=== PATIENT | female | born 1990 | race Two or more races ===

== ENCOUNTER 2024-09-06 17:20 | Emergency (ER) | payer MEDICAID, SELFPAY ==
[2024-09-06 17:21] VITALS: BMI 31.8
[2024-09-06 17:32] VITALS: BP 119/67; PULSE 66; RESP 16; TEMP 37.4; O2SAT 99
--- NOTE | 2024-09-06 18:00 | XR_ITS ---
Examination: Abdomen sonogram, Limited Date and time of exam: September 06, 2024 1835 hours INDICATIONS: Right upper abdominal pain and vomiting today, history gallstones Technique: Real-time arreguin scale transabdominal sonographic images of the upper abdomen obtained. Findings: Multiple gallstones Gallbladder wall 0.37 cm no edema Common bile duct 0.6 cm no definite stones Pancreatic head 2.2 cm Liver 12.5 cm no focal liver lesions Normal hepatopedal portal venous flow Patent IVC IMPRESSION: Cholelithiasis Borderline thickening gallbladder wall Mildly enlarged common bile duct, consider MRCP follow-up to exclude common bile duct stones and to exclude cholecystitis
--- NOTE | 2024-09-06 18:01 | PD.EDRME ---
Rapid Medical Screening Exam RME Arrival date/time: 09/06/24 17:20 34-year-old female presents the emergency department for complaint of upper right abdominal pain reports history of cholelithiasis Chief Complaint: Abdominal Pain Vital signs: Vital Signs Temperature 99.4 F 09/06/24 17:32 Pulse Rate 66 09/06/24 17:32 Respiratory Rate 16 09/06/24 17:32 Blood Pressure 119/67 09/06/24 17:32 Pulse Oximetry (%) 99 09/06/24 17:32 Oxygen Delivery Method Room Air 09/06/24 17:32
[2024-09-06] MEDS: ACETAMINOPHEN 500 MG TABLET 1000 MG PO (18:05)
[2024-09-06] MEDS: ONDANSETRON ODT 4 MG TABRAP PO (18:06)
[2024-09-06 18:38] LABS: Basophils % (Auto) 0 % (0-2.5); Eosinophils # (Auto) 0.1 Thou/mm3 (0.0-0.5); Eosinophils % (Auto) 1 % (0-10); Hematocrit 38.2 % (36.0-46.0); Immature Granulocytes % (Auto) 0 % (0-0); Immature Granulocytes Auto 0.01 Thou/mm3 (0.00-0.00); Lymphocytes # (Auto) 1.9 Thou/mm3 (1.0-4.8); Lymphocytes % (Auto) 30 % (10-50); Mean Corpuscular Hemoglobin 29.2 pg (25.0-35.0); Mean Corpuscular Volume 86 fL (80-100); Monocytes # (Auto) 0.4 Thou/mm3 (0.0-0.8); Monocytes % (Auto) 6 % (0-12); Neutrophils % (Auto) 62 % (37-80); Nucleated Red Blood Cell % 0 /100 WBC (0); Platelet Count 206 Thou/mm3 (140-440); RDW Standard Deviation 39.6 fL (36.4-46.3); Red Blood Count 4.45 Miln/mm3 (4.00-5.20); White Blood Count 6.4 Thou/mm3 (3.6-11.0)
[2024-09-06 18:40] LABS: Collection Type, Urine Clean Catch
[2024-09-06 18:50] LABS: Alanine Aminotransferase 15 U/L (10-49); Albumin, Serum 4.7 gm/dL (3.5-5.0); Albumin/Globulin Ratio 1.6 (1.2-2.2); Alkaline Phosphatase 41 U/L (46-116); Anion Gap 9 (7-16); Aspartate Amino Transferase 20 U/L (0-34); BUN/Creatinine Ratio 21 Ratio (12-20); Bilirubin,Total 0.4 mg/dL (0.3-1.2); Blood Urea Nitrogen 19 mg/dL (9-23); Calcium 9.6 mg/dL (8.3-10.6); Calcium (Corrected) 9.6 mg/dL (8.5-10.1); Carbon Dioxide 25.9 mMol/L (20.0-31.0); Chloride 103 mMol/L (98-107); Creatinine (Component) 0.9 mg/dL (0.6-1.3); Estimated Creatinine Clearance 87.4 mL/min (>60); Globulin 2.9 gm/dL (2.3-3.5); Glucose 90 mg/dL (74-106); Lipase 30 U/L (12-53); Osmolality,Calculated 277 (275-295); Potassium 4.2 mMol/L (3.4-5.1); Sodium 138 mMol/L (136-145); Total Protein 7.6 gm/dL (5.7-8.2); eGFR > 60 See Note
[2024-09-06 18:57] LABS: HCG Qualitative,Urine Negative
[2024-09-06 18:58] LABS: Bacteria,Urine Rare; Bilirubin,Urine Negative (Negative); Blood,Urine Trace (Negative); Clarity,Urine Clear (Clear/Hazy); Color,Urine Colorless (Lt Yel-Yel); Culture Indicated,Urine Not Indicated; Glucose, Urine Negative (Negative); Ketones,Urine Negative (Negative); Leukocyte Esterase,Urine Negative (Negative); Nitrite,Urine Negative (Negative); Protein,Urine Negative (Neg - Trace); RBC,Urine 1 /hpf (0-3); Specific Gravity,Urine 1.015 (1.001-1.035); Squamous Epithelial Cell,Urine 2 /hpf (0-5); Urobilinogen,Urine Negative mg/dL (0.0-1.0); WBC,Urine 2 /hpf (0-5)
--- NOTE | 2024-09-06 22:36 | PD.EDABDPN ---
ED Abdominal Pain RME/HPI General Chief Complaint: Abdominal Pain Stated complaint: STABBING PAIN IN GALLBLADDER W/ NAUSEA X 5 HRS Time seen by provider: 09/06/24 22:32 Arrival date/time: 09/06/24 17:20 Source: patient Limitations: no limitations RME / HPI RME / HPI narrative: 34-year-old female with no chronic medical history other than biliary colic. She states she has had a gallbladder problems for 10 years now. She will get pain with this at times. She states she was seen by general surgery for this approximate 5 to 6 years ago, surgery was being considered, but was canceled during the pandemic. She has not followed up with her general surgeon since. She states she developed worsening pain today at noon today and that has since improved. She has no diarrhea or diarrhea. No urinary changes. Related Data Home Medications ?Medication ?Instructions ?Recorded ?Confirmed Vitamin * 1 tab PO QDAY #0 tabs 09/12/13 ferrous sulfate 325 mg (65 mg 325 mg .Route QDAY #0 tabs 09/12/13 iron) tablet (Feosol) ferrous sulfate 324 mg (65 mg 325 mg PO BID 06/07/18 10/05/18 iron) tablet,delayed release vit no.95-ferrous 1 tab PO QDAY 06/07/18 10/05/18 fumarate 28 mg-folic acid 800 mcg tablet ( Multivitamins) Previous Rx's ?Medication ?Instructions ?Recorded hydrocodone 5 mg-acetaminophen 325 1 tab PO Q6H PRN pain #10 tabs 09/06/24 mg tablet ondansetron HCl 4 mg tablet 4 mg PO QDAY 3 days #3 tabs 09/06/24 Allergies Allergy/AdvReac Type Severity Reaction Status Date / Time No Known Allergies Allergy Verified 09/06/24 17:22 Review of Systems Review of Systems Systems Reviewed: All systems reviewed, normal except as documented ED Exam General Limitations: Present no limitations General appearance: Present alert and in no apparent distress Head Head exam: Present atraumatic Eye Eye exam: Present normal appearance, PERRL and EOMI ENT ENT exam: Present normal exam, normal oropharynx and mucous membranes moist Neck Neck exam: Present normal inspection, full ROM and trachea midline Chest Chest inspection: Present normal inspection and symmetric chest wall rise Respiratory Respiratory exam: Present normal lung sounds bilaterally Cardiovascular Cardiovascular exam: Present regular rate, normal rhythm and normal heart sounds Abdominal Exam Abdominal exam: Present soft and normal bowel sounds Extremities Exam Extremities exam: Present normal inspection and full ROM Back Exam Back exam: Present normal inspection and full ROM Neurological Exam Neurological exam: Present alert, oriented X3 and CN II-XII intact Psychiatric Psychiatric exam: Present normal affect and normal mood Skin Skin exam: Present warm, dry, intact and normal color Course Quality Measures none Orders Category Date Time Status US gall bladder Stat Exams 09/06/24 18:00 Completed CBC Stat Lab 09/06/24 18:12 Completed Comprehensive Metabolic Panel Stat Lab 09/06/24 18:12 Completed HCG Qualitative,Urine Stat Lab 09/06/24 18:15 Completed Lipase Stat Lab 09/06/24 18:12 Completed UA, C/S IF [Urinalysis, C/S if Indicated] Stat Lab 09/06/24 18:15 Completed Acetaminophen Tab [Tylenol ES Tab] Med 09/06/24 18:00 Discontinued 1,000 mg PO X1 ONE Ondansetron Odt [Zofran Odt] Med 09/06/24 18:00 Discontinued 4 mg PO X1 ONE Vital Signs Vital signs: Vital Signs Temperature 99.4 F 09/06/24 17:32 Pulse Rate 66 09/06/24 17:32 Respiratory Rate 16 09/06/24 17:32 Blood Pressure 119/67 09/06/24 17:32 Pulse Oximetry (%) 99 09/06/24 17:32 Oxygen Delivery Method Room Air 09/06/24 17:32 Abdominal Pain MDM MDM Narrative MDM Narrative:: On exam, patient is nontoxic-appearing and in no visible signs distress. She has no peritoneal signs. She is not point tender at her right upper quadrant. Her AST, ALT, alk phos, and bilirubin are all unremarkable. Lipase is unremarkable. Ultrasound confirms cholelithiasis. Do not believe she has acute cholecystitis or a stone in the common bile duct based on her laboratory results. Patient would benefit from outpatient surgical consultation and interventions. Will refer to surgery. We discussed return precautions. She is return as needed for any worsening or emergent changes such as increased pain, vomiting, or fevers. Patient data External records reviewed:: None Clinical information provided by:: patient Social determinants that could affect healthcare access:: none Patient has the following chronic illnesses:: Biliary colic How is presenting disease/condition affected by chronic disease/condition?: exacerbated by Evaluation data The following diagnostics were reviewed and interpreted by me:: lab results (No leukocytosis, liver function test are within normal limits. Lipase is unremarkable.) and radiology exam(s) (Gallbladder ultrasound confirms cholelithiasis) Lab and/or radiology exams considered but not ordered:: n/a Interpretation Summary: No elevated LFTs, radiology confirms cholelithiasis. There is mention of possible gallbladder wall thickening. Patient has improved pain and is not tender on exam. Discussed with attending ER physician. Will discharge for outpatient follow-up. Return as needed for worsening emergent changes Medications / Prescriptions Medications or Prescriptions considered but not ordered:: n/a Medication administrations:: Medication Administration History Discontinued Medications Acetaminophen (Acetaminophen 500 Mg Tablet) 1,000 mg PO X1 ONE Stop: 09/06/24 18:01 Last Admin: 09/06/24 18:05 Dose: 1,000 mg Documented By: MIKHAIL Ondansetron HCl (Ondansetron Odt 4 Mg Tabrap) 4 mg PO X1 ONE; Protocol Stop: 09/06/24 18:01 Last Admin: 09/06/24 18:06 Dose: 4 mg Documented By: MIKHAIL See above Consultations Consultation(s) initiated? (list below): No Diagnosis Differential diagnosis abdominal pain: abdominal pain, gastroenteritis and pancreatitis Most likely diagnosis given after review of the tests above:: Biliary colic Admission Indicated Admission indicated?: not indicated Admission Request Was there a request for admission?: No Disposition Plan Disposition Plan: Discharge Discharge Attestation Discharge Attestation: The patient and all family members were given an opportunity to ask questions and understood the discharge instructions. Discharge instructions specifically effects, indications for sooner follow up or return to the emergency department, and the expected course of current diagnosis. Patient condition: Stable Discharge Plan Plan Patient Disposition: HOME (Self Care) Patient condition on transfer: Stable Prescriptions/Referrals Prescriptions/Med Rec: New hydrocodone-acetaminophen 5-325 mg tablet 1 tab PO Q6H MDD 4 PRN (Reason: pain) Qty: 10 0RF ondansetron HCl 4 mg tablet 4 mg PO QDAY 3 Days Qty: 3 0RF No Action ferrous sulfate [Feosol] 1 TAB tablet 325 mg .Route QDAY Qty: 0 Vitamin * 1 EACH tablet 1 tab PO QDAY Qty: 0 PNV cmb#95-ferrous fumarate-FA [ Multivitamins] 28 mg iron- 800 mcg Tablet 1 tab PO QDAY ferrous sulfate 324 mg (65 mg iron) Tablet,Delayed Release (Dr/Ec) 325 mg PO BID Referrals: John Mccloud MD [Physician] - In 1 week No Primary/Family,Physician [Primary Care Provider] - In 1 week Problem List Clinical Impression: Biliary colic Patient/Caregiver Discharge Instructions Education Materials: ED Gallstones with Biliary Colic Additional Instructions: - Avoid fatty and greasy foods. - Use of provided medications as needed for symptomatic relief. - Contact general surgery to schedule close follow-up appointment. - Return to the ER anytime for any worsening emergent changes. Print Language: Turkmen Stand Alone Forms: Olivia Award Info., Patient Portal Info Letter
== END 2024-09-06 22:54 | disposition home or self-care (01) ==
PROVIDERS: Nurse Practitioner Primary Care; Emergency Provider Emergency Medicine
DX: K80.70 Calculus of gallbladder and bile duct without cholecystitis without obstruction (principal)
CPT/HCPCS: 36415; 76705; 80053; 81001; 81025; 83690; 85025; 99284; Q0162; A9270

== ENCOUNTER 2024-11-06 01:13 | Emergency (ER) | payer MEDICAID, SELFPAY ==
[2024-11-06 01:14] VITALS: BMI 30.9
[2024-11-06 01:38] VITALS: BP 114/75; PULSE 75; RESP 18; TEMP 36.7; O2SAT 98
--- NOTE | 2024-11-06 01:48 | EKG_ITS ---
[facility] Test Date: 2024-11-06 Pat Name: MARY CARRILLO Department: Room: - Gender: Female Roving Weight Gauger: : 1990 Requested By: Lalo Purvis Order Number: [id number] Reading MD: Lalo Purvis Measurements Intervals [place] Rate: 63 P: 37 DC: 157 QRS: 56 QRSD: 90 T: 42 QT: 414 QTc: 425 Interpretive Statements SINUS RHYTHM No previous ECG available for comparison /store/S0/[id number]/ecg/[id number].pdf
--- NOTE | 2024-11-06 01:48 | XR_ITS ---
Examination: CT brain head without contrast. 2-D sagittal coronal reconstructions Date and time of exam:November 06, 2024, 0159 hours INDICATIONS: Headache dizziness shaking shortness of breath beginning today. CTDI: vol (mGy):46.60. DLP: (mGycm):897 Technique: Multiple CT axial sections of the brain have been obtained, 5 mm slice thickness. Contrast has not been administered. 2-D sagittal, coronal reconstructions have been obtained Low dose protocols were performed. One or more of the following dose reduction techniques were used; automated exposure control, adjustment of the mA and/or KV according to patient size, use of iterative reconstruction technique. Findings: No significant ventricular enlargement. Intra-axial or extra-axial hemorrhage density is not seen. No mass effect or midline shift Basal cisterns are not remarkable. Fourth ventricle is midline. Cranial vault intact. Impression: Negative for acute hemorrhage, mass effect or midline shift Advise clinical correlation and follow up accordingly.
--- NOTE | 2024-11-06 01:48 | PD.EDRME ---
Rapid Medical Screening Exam RME Arrival date/time: 11/06/24 01:13 This is a case of 34-year-old female with no medical history came in in the emergency room due to dizziness headache and shakiness for 2 days worsening of symptoms thus patient decided to sought consult in the emergency room Chief Complaint: Dizziness Time Seen by Provider: 11/06/24 01:48 Vital signs: Vital Signs Temperature 98.0 F 11/06/24 01:38 Pulse Rate 75 11/06/24 01:38 Respiratory Rate 18 11/06/24 01:38 Blood Pressure 114/75 11/06/24 01:38 Pulse Oximetry (%) 98 11/06/24 01:38 Oxygen Delivery Method Room Air 11/06/24 01:38
[2024-11-06 02:23] LABS: Basophils # (Auto) 0.0 Thou/mm3 (0.0-0.2); Basophils % (Auto) 1 % (0-2.5); Eosinophils # (Auto) 0.1 Thou/mm3 (0.0-0.5); Eosinophils % (Auto) 1 % (0-10); Hematocrit 36.3 % (36.0-46.0); Hemoglobin 12.3 g/dL (12.0-16.0); Immature Granulocytes Auto 0.01 Thou/mm3 (0.00-0.00); Lymphocytes # (Auto) 2.3 Thou/mm3 (1.0-4.8); Lymphocytes % (Auto) 30 % (10-50); Mean Corpuscular HGB Conc 33.9 g/dl (31.0-37.0); Mean Corpuscular Hemoglobin 28.8 pg (25.0-35.0); Mean Corpuscular Volume 85 fL (80-100); Monocytes # (Auto) 0.7 Thou/mm3 (0.0-0.8); Monocytes % (Auto) 9 % (0-12); Neutrophils # (Auto) 4.6 Thou/mm3 (1.8-7.7); Neutrophils % (Auto) 60 % (37-80); Nucleated Red Blood Cell # 0.00 Thou/mm3 (0.00-0.00); Nucleated Red Blood Cell % 0 /100 WBC (0); Platelet Count 254 Thou/mm3 (140-440); RDW Standard Deviation 38.5 fL (36.4-46.3); Red Blood Count 4.27 Miln/mm3 (4.00-5.20); White Blood Count 7.8 Thou/mm3 (3.6-11.0)
--- NOTE | 2024-11-06 02:39 | PRELIM_ITS ---
CT scan of the head without intravenous contrast (axial sections with sagittal and coronal reformats). November 06, 2024 0159 hours Clinical History: headache Findings: No evidence of intracranial hemorrhage, mass effect or midline shift. The ventricles and CSF spaces are unremarkable. The calvarium is unremarkable. The mastoid air cells and the visualized paranasal sinuses are clear. Impression: 1. No evidence of intracranial hemorrhage, mass effect or midline shift. 2. Other findings as described above. Suggest clinical correlation and follow up accordingly. Report Electronically Signed By: Rj Gavin 11/06/2024 2:38:41 AM [EST]
[2024-11-06 02:41] VITALS: BP 111/66; PULSE 56; RESP 15; O2SAT 97
[2024-11-06 02:46] LABS: Alanine Aminotransferase 15 U/L (10-49); Albumin, Serum 4.4 gm/dL (3.5-5.0); Albumin/Globulin Ratio 1.6 (1.2-2.2); Alkaline Phosphatase 46 U/L (46-116); Anion Gap 9 (7-16); Aspartate Amino Transferase 14 U/L (0-34); BUN/Creatinine Ratio 18 Ratio (12-20); Bilirubin,Total 0.4 mg/dL (0.3-1.2); Blood Urea Nitrogen 16 mg/dL (9-23); Calcium 9.8 mg/dL (8.3-10.6); Calcium (Corrected) 9.8 mg/dL (8.5-10.1); Carbon Dioxide 26.1 mMol/L (20.0-31.0); Chloride 104 mMol/L (98-107); Creatinine (Component) 0.9 mg/dL (0.6-1.3); Estimated Creatinine Clearance 89.3 mL/min (>60); Globulin 2.7 gm/dL (2.3-3.5); Glucose 101 mg/dL (74-106); Osmolality,Calculated 278 (275-295); Potassium 3.9 mMol/L (3.4-5.1); Sodium 139 mMol/L (136-145); Total Protein 7.1 gm/dL (5.7-8.2); eGFR > 60 See Note
[2024-11-06 03:02] LABS: Collection Type, Urine Clean Catch
--- NOTE | 2024-11-06 03:03 | PD.EDDIZZY ---
ED Dizzyness RME/HPI General Chief Complaint: Dizziness Stated Complaint: DIZZY, SHAKING, AND CAN'T GET ENOUGH OXYGEN Time Seen by Provider: 11/06/24 01:48 Arrival date/time: 11/06/24 01:13 RME / HPI RME / HPI Narrative: 11/06/24 01:13 This is a case of 34-year-old female with no medical history came in in the emergency room due to dizziness headache and shakiness for 2 days worsening of symptoms thus patient decided to sought consult in the emergency room DR. CURRAN MAIN ED EVALUATION: 34 y/o female with Hx of Cholecystitis and Anemia presents to ED c/o dizziness and shakiness x 24 hours. Dizziness is exacerbated with movement, but is able to ambulate. No other concerns or complaints expressed at this time. Related Data Home Medications ?Medication ?Instructions ?Recorded ?Confirmed Vitamin * 1 tab PO QDAY #0 tabs 09/12/13 ferrous sulfate 325 mg (65 mg 325 mg .Route QDAY #0 tabs 09/12/13 iron) tablet (Feosol) ferrous sulfate 324 mg (65 mg 325 mg PO BID 06/07/18 10/05/18 iron) tablet,delayed release vit no.95-ferrous 1 tab PO QDAY 06/07/18 10/05/18 fumarate 28 mg-folic acid 800 mcg tablet ( Multivitamins) Previous Rx's ?Medication ?Instructions ?Recorded hydrocodone 5 mg-acetaminophen 325 1 tab PO Q6H PRN pain #10 tabs 09/06/24 mg tablet meclizine 25 mg tablet 25 mg PO QID PRN dizziness #20 tabs 11/06/24 Allergies Allergy/AdvReac Type Severity Reaction Status Date / Time No Known Allergies Allergy Verified 11/06/24 01:14 Review of Systems Review of Systems Systems Reviewed: All systems reviewed, normal except as documented Past Medical History Past Medical History GASTROINTESTINAL: Positive Gastrointestinal Disorders and Gall Bladder Disease (GALLSTONES) REPRODUCTIVE: Positive Previous Pregnancies HEMATOLOGIC: Positive Blood Disorders and Anemia Family History FAMILY HISTORY: Positive Family Cardiac Disorders (FATHER (HEART ATTACK)) and Family Cancer (THYROID CANCER, PROSTATE CANCER) ED Exam Narrative Physical exam: Generally patient is alert no obvious distress, eyes show no vertical nystagmus, heart regular rate and rhythm, lungs clear to auscultation equal bilaterally, abdomen soft bowel sounds present nondistended nontender, neurologic exam no focal motor or sensory deficits current nerves II through XII grossly intact Course Quality Measures none Orders Category Date Time Status EKG (ED ONLY) *Do not use* NOW Care 11/06/24 01:48 Completed EKG (ED ONLY) *Do not use* NOW Care 11/06/24 02:[address] head/brain wo con Stat Exams 11/06/24 01:48 Taken EKG (ED Only) Stat Exams 11/06/24 01:48 Draft EKG (ED Only) Stat Exams 11/06/24 02:58 Stop Req CBC Stat Lab 11/06/24 02:10 Completed Comprehensive Metabolic Panel Stat Lab 11/06/24 02:10 Completed Drug Screen,Urine Stat Lab 11/06/24 02:56 Ordered HCG Qualitative,Urine Stat Lab 11/06/24 02:38 Completed Urinalysis Stat Lab 11/06/24 02:38 Completed Meclizine HCl [Antivert] Med 11/06/24 03:05 Discontinued 25 mg PO X1 ONE Vital Signs Vital signs: Vital Signs Temperature 98.0 F 11/06/24 01:38 Pulse Rate 75 11/06/24 01:38 Respiratory Rate 18 11/06/24 01:38 Blood Pressure 114/75 11/06/24 01:38 Pulse Oximetry (%) 98 11/06/24 01:38 Oxygen Delivery Method Room Air 11/06/24 01:38 Dizziness MDM Narrative MDM Narrative:: Scribe Attestation: ISowmya am scribing for and in the presence of Dr. Curran. Provider Notation: Although this document has been carefully reviewed, there may still be some phonetic and other typographical errors. These errors are purely grammatical due to imperfections in the software program and should not be construed in any way to? compromise the substance of the patient's medical care during this visit. The patient's workup was protocoled. Head CT was negative. I interpreted all lab work and there is no acute abnormality. Patient states that the dizziness is made worse with head movement. Patient received meclizine 25 mg p.o. here in the emergency room with partial benefit. She will be given a prescription for meclizine to be taken as prescribed. Follow-up with her doctor. Return to ER as needed or if condition worsens. There was no sign of electrolyte abnormality, anemia or . Patient data External records reviewed:: [facility] previous records (Reviewed prior ED records from 09/06/24. Patient was seen for Biliary colic.) Clinical information provided by:: patient Social determinants that could affect healthcare access:: none Patient has the following chronic illnesses:: Anemia How is presenting disease/condition affected by chronic disease/condition?: exacerbated by Evaluation data The following diagnostics were reviewed and interpreted by me:: lab results, radiology exam(s) and EKG tracing(s) Lab and/or radiology exams considered but not ordered:: None Interpretation Summary: RADIOLOGY Head/Brain CT: Findings: No evidence of intracranial hemorrhage, mass effect or midline shift. The ventricles and CSF spaces are unremarkable. The calvarium is unremarkable. The mastoid air cells and the visualized paranasal sinuses are clear. Impression: No evidence of intracranial hemorrhage, mass effect or midline shift. Other findings as described above. Suggest clinical correlation and follow up accordingly. Medications / Prescriptions Medications or Prescriptions considered but not ordered:: None Medication administrations:: Medication Administration History Discontinued Medications Meclizine HCl (Meclizine Hcl 25 Mg Tablet) 25 mg PO X1 ONE Stop: 11/06/24 03:06 Last Admin: 11/06/24 03:25 Dose: 25 mg Documented By: See above if any Consultations Consultation(s) initiated? (list below): No Diagnosis Dizziness Differential Diagnosis: adverse reaction to drug, benign paroxysmal positional vertigo, orthostatic hypotension, vertebral basilar insufficiency and acute vestibular neuronitis Most likely diagnosis given after review of the tests above:: none Admission Indicated Admission indicated?: not indicated Explain why admission is indicated or not indicated:: Patient does not meet admission criteria Admission Request Was there a request for admission?: No Disposition Plan Disposition Plan: Discharge Discharge Attestation Discharge Attestation: The patient and all family members were given an opportunity to ask questions and understood the discharge instructions. Discharge instructions specifically effects, indications for sooner follow up or return to the emergency department, and the expected course of current diagnosis. Patient condition: Stable Discharge Plan Plan Patient Disposition: HOME (Self Care) Prescriptions/Referrals Prescriptions/Med Rec: New meclizine 25 mg tablet 25 mg PO QID PRN (Reason: dizziness) Qty: 20 0RF No Action ferrous sulfate [Feosol] 1 TAB tablet 325 mg .Route QDAY Qty: 0 Vitamin * 1 EACH tablet 1 tab PO QDAY Qty: 0 PNV no.95-ferrous fumarate-FA [ Multivitamins] 28 mg iron- 800 mcg Tablet 1 tab PO QDAY ferrous sulfate 324 mg (65 mg iron) Tablet,Delayed Release (Dr/Ec) 325 mg PO BID hydrocodone-acetaminophen 5-325 mg tablet 1 tab PO Q6H MDD 4 PRN (Reason: pain) Qty: 10 0RF Referrals: Taurus Rome MD [Primary Care Provider] - In 1 week Problem List Clinical Impression: Vertigo Patient/Caregiver Discharge Instructions Additional Instructions: Take the meclizine as prescribed. Follow-up with your doctor. Return to ER as needed or if condition worsens. Print Language: Urdu Stand Alone Forms: Olivia Award Info., Patient Portal Info Letter
[2024-11-06 03:08] LABS: HCG Qualitative,Urine Negative
[2024-11-06 03:09] LABS: Bilirubin,Urine Negative (Negative); Blood,Urine Negative (Negative); Clarity,Urine Clear (Clear/Hazy); Color,Urine Lt-Yellow (Lt Yel-Yel); Glucose, Urine Negative (Negative); Ketones,Urine Negative (Negative); Leukocyte Esterase,Urine Positive (Negative); Nitrite,Urine Negative (Negative); PH,Urine 6.0 (5.0-7.0); Protein,Urine Negative (Neg - Trace); RBC,Urine 1 /hpf (0-3); Specific Gravity,Urine 1.012 (1.001-1.035); Squamous Epithelial Cell,Urine 1 /hpf (0-5); Urobilinogen,Urine Negative mg/dL (0.0-1.0); WBC,Urine 1 /hpf (0-5)
[2024-11-06] MEDS: MECLIZINE HCL 25 MG TABLET PO (03:25)
[2024-11-06 03:46] VITALS: BP 104/68; PULSE 56; RESP 13; TEMP 36.6; O2SAT 94
[2024-11-06 04:08] VITALS: BP 112/86; PULSE 71; RESP 18
== END 2024-11-06 04:09 | disposition home or self-care (01) ==
PROVIDERS: Nurse Practitioner Family; Emergency Provider Emergency Medicine; PCP Family Medicine
DX: R42 Dizziness and giddiness (principal)
CPT/HCPCS: 36415; 70450; 80053; 80307; 81001; 81025; 85025; 93005; 99283; A9270

== ENCOUNTER 2025-03-02 05:50 | Day surgery (SDC) | payer MEDICAID, SELFPAY ==
[2025-03-01 11:07] VITALS: BMI 33.3
[2025-03-01 12:33] LABS: Basophils # (Auto) 0.0 Thou/mm3 (0.0-0.2); Basophils % (Auto) 1 % (0-2.5); Eosinophils # (Auto) 0.1 Thou/mm3 (0.0-0.5); Eosinophils % (Auto) 1 % (0-10); Hematocrit 36.0 % (36.0-46.0); Hemoglobin 12.1 g/dL (12.0-16.0); Immature Granulocytes Auto 0.01 Thou/mm3 (0.00-0.00); Lymphocytes # (Auto) 1.1 Thou/mm3 (1.0-4.8); Lymphocytes % (Auto) 25 % (10-50); Mean Corpuscular HGB Conc 33.6 g/dl (31.0-37.0); Mean Corpuscular Hemoglobin 29.2 pg (25.0-35.0); Mean Corpuscular Volume 87 fL (80-100); Monocytes # (Auto) 0.5 Thou/mm3 (0.0-0.8); Monocytes % (Auto) 12 % (0-12); Neutrophils # (Auto) 2.6 Thou/mm3 (1.8-7.7); Neutrophils % (Auto) 61 % (37-80); Nucleated Red Blood Cell # 0.00 Thou/mm3 (0.00-0.00); Nucleated Red Blood Cell % 0 /100 WBC (0); Platelet Count 195 Thou/mm3 (140-440); RDW Standard Deviation 39.8 fL (36.4-46.3); Red Blood Count 4.14 Miln/mm3 (4.00-5.20); White Blood Count 4.3 Thou/mm3 (3.6-11.0)
[2025-03-01 12:38] LABS: HCG,Qualitative Serum Negative
[2025-03-01 12:47] LABS: Alanine Aminotransferase 31 U/L (10-49); Albumin, Serum 4.6 gm/dL (3.5-5.0); Albumin/Globulin Ratio 1.6 (1.2-2.2); Alkaline Phosphatase 51 U/L (46-116); Anion Gap 10 (7-16); Aspartate Amino Transferase 25 U/L (0-34); BUN/Creatinine Ratio 15 Ratio (12-20); Bilirubin,Total 0.5 mg/dL (0.3-1.2); Blood Urea Nitrogen 12 mg/dL (9-23); Calcium 9.4 mg/dL (8.3-10.6); Calcium (Corrected) 9.4 mg/dL (8.5-10.1); Carbon Dioxide 27.7 mMol/L (20.0-31.0); Chloride 105 mMol/L (98-107); Creatinine (Component) 0.8 mg/dL (0.6-1.3); Estimated Creatinine Clearance 99.6 mL/min (>60); Globulin 2.9 gm/dL (2.3-3.5); Glucose 100 mg/dL (74-106); Osmolality,Calculated 284 (275-295); Potassium 4.0 mMol/L (3.4-5.1); Sodium 143 mMol/L (136-145); Total Protein 7.5 gm/dL (5.7-8.2); eGFR > 60 See Note
[2025-03-02] VITALS (12 sets, daily range): BP systolic 95–104; BP diastolic 53–74; PULSE 51–69; RESP 13–21; TEMP 36.3–36.6; O2SAT 97–100; BMI 33.1
[2025-03-02] MEDS: RINGERS LACTATED 1000 ML 1,000 ML 20 ML IV (07:21)
--- NOTE | 2025-03-02 08:43 | SUR.PHASEI ---
Addendum entered by Antonina Lewis RN 03/02/25 15:43: Change MERNA Loyd to MERNA Gonzalez Original Note: 0843: pt received from OR via [facility]. received report from MERNA Loyd and DIONI Welch. pt sleepy with oral airway in place. no s/s of resp. distress or discomfort. no s/s of pain or discomfort. dermabond x4 to abdomen clean, dry and intact. no bleeding or swelling around the surgical site.
--- NOTE | 2025-03-02 08:47 | ESOP_ITS ---
Date of Procedure 03/02/25 Pre Op Diagnosis Symptomatic cholelithiasis Post Op Diagnosis Cholelithiasis with cholecystitis Procedure Laparoscopic cholecystectomy Findings Moderately distended gallbladder filled with varying sizes of gallstones and chronic cholecystitis Procedure Description Patient was brought into the operating room in supine position. After administration of general endotracheal anesthesia abdomen was prepped and draped in standard surgical manner. A Veress needle was inserted through the umbilicus and pneumoperitoneum was obtained up to 15 mmHg. The Veress needle was then removed, a 5 mm infraumbilical incision was made and the 5mm trocar was inserted. Laparoscopic camera was placed. Under direct visualization a laparoscopic camera a 10 mm trocar was placed in subxiphoid and two 5 mm trocars placed in right upper quadrant. The gallbladder was identified and was noted to be moderately distended filled with gallstones and chronic cholecystitis. It was retracted cephalad and laterally. Dissection started near the infundibulum of gallbladder where cystic duct and gallbladder junction clearly identified. The cystic duct was circumferentially dissected off the peritoneum and surrounding inflammatory tissue. The critical view of safety was clearly demonstrated. Cystic duct was then divided between 2 endoclips proximally and one distally. The cystic artery was similarly dissected and divided, patient was noted to have anterior and posterior branches of cystic artery that were individually dissected and divided. The gallbladder was then from the liver bed using electrocautery. The gallbladder was then placed inside an Endo Catch and removed from the abdomen utilizing subxiphoid trocar site. The area was copiously and thoroughly washed and irrigated, all the fluid was suctioned and the suction fluid returned clear. Hemostasis achieved using electrocautery. Endoclips noted be in place and intact without any bleeding or any leakage. Hemostasis was adequate and satisfactory. The subxiphoid trocar sites fascial defect was closed with 0 Vicryl using Endo Closure device. Instruments and trocars removed, pneumoperitoneum was evacuated and the incisions closed with 4- 0 Monocryl in subcuticular fashion. Instrument needle and sponge counts were all reported to be correct X2. Patient tolerated the procedure well, was extubated, breathing spontaneously and without difficulty and was transferred to postanesthesia care in stable condition. Anesthesia GETA and local Pathology / specimen Other (Gallbladder and contents) Estimated Blood Loss 15 Condition Stable Disposition PACU Surgeon John Mccloud MD Surgical Staff Operation Date: 03/02/25 07:30 Case Staff COMMUNICATIONS TECHNICIAN: Guy Lovelace health insurance assessor: Evelia Payne
--- NOTE | 2025-03-02 08:53 | SUR.PHASEII ---
0853: pt able to open mouth when ask, oral airway removed at this time.
[2025-03-02] MEDS: fentaNYL CIT INJ 50 mCg/ML AMP 2ML IVP ×3 (08:59→09:55)
[2025-03-02] MEDS: ACETAMINOPHEN IVPB 1,000 MG/100 ML VIAL 250 MG IV (09:17)
--- NOTE | 2025-03-02 09:25 | SUR.PHASEII ---
0925: pt alert and oriented. no s/s of resp. distress or discomfort. given pain medication as ordered. derma macario to abdomen x4 clean, dry and intact. no swelling or redness around the surgical site.
--- NOTE | 2025-03-02 09:30 | SUR.PHASEI ---
0930: tolerate ice chips without any issues.
--- NOTE | 2025-03-02 09:45 | SUR.PHASEII ---
0945: pt tolerate juice without any issues. discharge instructions given to patient and son, verbalizes understanding.
--- NOTE | 2025-03-02 10:06 | SUR.PHASEII ---
1006: pt tolerate 7-up without any issues.
--- NOTE | 2025-03-02 10:25 | SUR.PHASEII ---
1025: called Yuri WHEATLEY d/t pt continued pain. New order of [place] 5/325mg x1 received.
[2025-03-02] MEDS: HYDROcodone/APAP 5/325 TABLET 1 TAB PO (10:27)
[2025-03-02] MEDS: ONDANSETRON INJ 2 MG/ML INJ 2 ML 4 MG IVP (10:44)
--- NOTE | 2025-03-02 10:46 | SUR.PHASEII ---
1046: pt able to ambulate to hallway without any issues.
--- NOTE | 2025-03-02 10:55 | SUR.PHASEII ---
1055: pt discharge to home via wheelchair. pt alert and oriented to name, place and time. no s/s of resp. distress or discomfort. patient reported that PO pain medication received, helpful. derma macario x4 to abdomen clean, dry and intact. no bleeding, swelling, redness or discharge from surgical site.
== END 2025-03-02 10:55 | disposition home or self-care (01) ==
PROVIDERS: PCP Family Medicine; Referring Provider Surgery; Visit Provider Surgery
PROC: 0FT44ZZ Resection of Gallbladder, Percutaneous Endoscopic Approach (ICD-10-PCS; CPT 47562; principal; 2025-03-02 07:30)
DX: K80.10 Calculus of gallbladder with chronic cholecystitis without obstruction (principal)
CPT/HCPCS: 47562; 36415; 80053; 84703; 85025; A4217; A4649; J0131; J0694; J1100; J1885; J2250; J2405; J2704; J3010; J3490; J7120; A9270